=== PATIENT | female | born 1985 ===

== ENCOUNTER 2023-07-22 14:41 | Outpatient (CLI) | payer OTHER, SELFPAY ==
--- NOTE | ~2023-07-22 | US_ITS ---
EXAMINATION: US transvaginal DATE: 07/22/2023 15:35 INDICATION: Enlarged uterus. Abnormal uterine bleeding. TECHNIQUE: Multiple transvaginal sonographic images of the pelvis were obtained. COMPARISON: None. FINDINGS: The uterus measures 8.2 x 3.9 x 5.1 cm. There is no free fluid in the pelvis. The endometrial complex measures 1.2 cm in thickness. The right ovary measures 3.4 x 2.5 x 3.6 cm. The left ovary measures 2 .4 x 1.6 x 2.3 cm. There is normal vascular flow in the ovaries. IMPRESSION: 1. Normal pelvis. Reviewed, dictated and finalized at location E. E SPECIALIST IMPRESSION: 1. Normal pelvis.
== END 2023-07-22 14:42 ==
PROVIDERS: PCP Obstetrics & Gynecology; Visit Provider Obstetrics & Gynecology
DX: N85.7 Hematometra (principal); N93.9 Abnormal uterine and vaginal bleeding, unspecified
CPT/HCPCS: 76830